=== PATIENT | female | born 2005 | race Caucasian/White ===

== ENCOUNTER 2024-03-18 06:04 | Day surgery (SDC) | payer BC, SELFPAY ==
[2024-03-18] VITALS (10 sets, daily range): BP systolic 96–120; BP diastolic 42–73; BMI 24.2
[2024-03-18 06:31] LABS: HCG, Urine Qualitative Screen Negative
[2024-03-18] MEDS: CELEBREX 200 MG PO (06:39)
[2024-03-18] MEDS: TYLENOL 1000 MG PO (06:39)
[2024-03-18] MEDS: NORMOSOL-R 1000 IV (06:40)
--- NOTE | 2024-03-18 09:42 | PTCARENOTE ---
Patients mom states that she faints at times due to low BP. Giving patient the rest of the IV fluids prior to getting patient up out of bed. Will monitor patient.
== END 2024-03-18 11:15 | disposition home or self-care (01) ==
LOC: SDS 06:04
PROVIDERS: ATTENDING PHYSICIAN Orthopaedic Surgery Hand Surgery
DX: M77.11 Lateral epicondylitis, right elbow (principal); M65.9 Synovitis and tenosynovitis, unspecified
CPT/HCPCS: 24357; 81025